=== PATIENT | female | born 1940 | race Two or more races ===

== ENCOUNTER → 2019-06-28 | Emergency (ER) | payer SELFPAY ==
[~2019-06-28] VITALS: Ht 160 cm; Wt 68.0 kg
[~2019-06-28] MED LIST: Acetaminophen 500mg (ES) tab PO ONE; TYLENOL EXTRA500 MG ORAL
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
[2019-06-28 19:38] VITALS: BP 200/80
--- NOTE | 2019-06-28 20:34 | Diagnostic Imaging Report ---
Indication: Right foot pain Technique: 3 views right foot Comparison: none Findings: There are severe hammertoe deformities second through fifth digits. There are degenerative changes of the first metatarsal phalangeal joint. No definite acute fractures. No dislocations. The bones are osteoporotic. The joint spaces are preserved. There are vascular calcifications. There is a plantar spur Impression: Findings as noted. No definite acute bony trauma This agrees with the preliminary interpretation provided overnight by [facility].
--- NOTE | 2019-06-28 20:35 | Diagnostic Imaging Report ---
Indication: Right ankle pain Technique: 3 views of the right ankle Comparison: none Findings: No acute fractures. No dislocations. Corticated ossific density at the tip of the lateral malleolus may represent either an old ununited fracture or an ununited ossification center, favor the latter. The bones are osteoporotic. There are vascular calcifications Impression: No acute bony trauma This agrees with the preliminary interpretation provided overnight by [facility].
--- NOTE | 2019-06-28 20:41 | NUR ---
ED Nurse Note: Patient cleared for discharge by RUKHSANA. Patient verbalized understanding of discharge instructions, ID band removed. Patient right foot was wrapped with an mireille bandage and patient was provided with crutches. Patient departed with all belongings to family members who she called to pick her up.
[2019-06-28 20:47] VITALS: BP 200/80
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
== END | disposition home or self-care (01) ==
LOC: EDBD 19:33 → EMR 22:28
DX: S90.01XA Contusion of right ankle, initial encounter (principal); E11.9 Type 2 diabetes mellitus without complications; I10 Essential (primary) hypertension; V03.90XA Pedestrian on foot injured in collision with car, pick-up truck or van, unspecified whether traffic or nontraffic accident, initial encounter; Y92.410 Unspecified street and highway as the place of occurrence of the external cause
CPT/HCPCS: 99283